=== PATIENT | male | born 1985 | race Caucasian/White ===

== ENCOUNTER 2019-07-14 22:38 | Emergency (ER) | payer OTHER ==
[2019-07-14 23:01] VITALS: TEMP 98
--- NOTE | 2019-07-14 23:24 | XR ---
EXAMINATION TYPE: XR thoracic spine 2V DATE OF EXAM: 07/14/2019 COMPARISON: July 06, 2012 HISTORY: Back pain TECHNIQUE: 3 views FINDINGS: Vertebra have normal spacing and alignment. Posterior elements are intact. There is no comp ression fracture. There is no evidence of thoracic paraspinal mass. IMPRESSION: Normal thoracic spine exam. No change.
[2019-07-15] MEDS ORDERED: HYDROcodone/APAP 5-325MG 1 EACH TAB PO STA (00:26)
[2019-07-15] MEDS ORDERED: IBUPROFEN 400 MG TAB PO STA (00:26)
--- NOTE | 2019-07-15 00:42 | XR ---
EXAMINATION TYPE: XR lumbar spine 2 or 3V DATE OF EXAM: 07/15/2019 COMPARISON: NONE HISTORY: Back pain TECHNIQUE: 3 views FINDINGS: Vertebra have normal alignment. Posterior elements are intact. Disc spaces are normal. Sacr oiliac joints appear normal. IMPRESSION: Normal lumbar spine.
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
[2019-07-15 01:09] VITALS: BP 132/86; PULSE 70; RESP 18
== END 2019-07-15 01:09 | disposition home or self-care (01) ==
LOC: EC 22:38
DX: S39.92XA Unspecified injury of lower back, initial encounter (principal); M54.5 Low back pain; Z88.0 Allergy status to penicillin; Z88.8 Allergy status to other drugs, medicaments and biological substances; V47.5XXA Car driver injured in collision with fixed or stationary object in traffic accident, initial encounter; Y92.410 Unspecified street and highway as the place of occurrence of the external cause; Y93.89 Activity, other specified
CPT/HCPCS: 72070; 72100; 99284